=== PATIENT | male | born 1960 | race Hispanic/Latino ===

== ENCOUNTER 2024-05-13 06:10 | Observation (INO) | payer OTHER ==
[2024-05-12 09:22] LABS: BASOPHILS # (AUTO) 0.1 (0.0-0.1); BASOPHILS % 1.3 % (0.0-1.0); EOSINOPHILS # (AUTO) 0.1 (0.0-0.4); EOSINOPHILS % 1.7 % (0.0-6.0); HEMATOCRIT 52.7 % (38.2-49.6); HEMOGLOBIN 16.9 g/dL (14.0-18.0); LYMPHOCYTES # (AUTO) 1.3 (1.0-3.2); LYMPHOCYTES % 26.1 % (18.0-39.1); MEAN CORPUSCULAR HEMOGLOBIN 31.8 pg (28-32); MEAN CORPUSCULAR HGB CONC 32.1 g/dL (31-35); MEAN CORPUSCULAR VOLUME 99.2 fL (81-99); MONOCYTES # (AUTO) 0.8 (0.2-0.8); MONOCYTES % 16.1 % (4.4-11.3); NEUTROPHILS # (AUTO) 2.6 (2.1-6.9); NEUTROPHILS % 54.8 % (38.7-80.0); PLATELET COUNT 148 x10e3/uL (140-360); RED BLOOD COUNT 5.31 x10e6/uL (4.3-5.7); RED CELL DISTRIBUTION WIDTH 13.6 % (11.7-14.4); WHITE BLOOD COUNT 4.79 x10e3/uL (4.8-10.8)
[2024-05-12 09:35] LABS: INR 1.13; PROTHROMBIN TIME 15.1 seconds (11.9-14.5)
[2024-05-12 09:41] LABS: ANION GAP 11.1 mmol/L (8-16); CALCIUM 9.4 mg/dL (8.4-10.2); CREATININE, SERUM 1.03 mg/dL (0.72-1.25); POTASSIUM 4.1 mmol/L (3.5-5.1)
[~2024-05-13] VITALS: Ht 180.3 cm; Wt 117.5 kg
[~2024-05-13 06:10] MED LIST: AMLODIPINE-VAL1 EACH PO; CRESTOR40 MG PO; ELIQUIS5 MG PO; IPRATROPIUM BRO30 ML INH; METOPROLOL TART25 MG PO; MODAFINIL200 MG PO; MULTIVITAMIN1 EACH PO; PRESERVISION A1 EAC5 PO; RANEXA PO; [UNRECOGNIZED DRUG - CODE] PO
[2024-05-13] MEDS ORDERED: THROMBIN FOR SOLN 5,000 UNIT VIAL ONE (06:53)
[2024-05-13] MEDS ORDERED: Vancomycin IV 1 GM VIAL ONE (06:53)
[2024-05-13] MEDS: LACTATED RINGER'S 1,000 ML ONE (09:10)
[2024-05-13] MEDS: CEFAZOLIN SODIUM 2 GM ONE (09:10)
[2024-05-13] MEDS ORDERED: HYDROCODON-ACE1 EA12 PO (11:14)
[2024-05-13] MEDS ORDERED: PROMETHAZINE HCL (IM) 25 MG/ML VIAL IM PRN (11:15)
[2024-05-13] MEDS ORDERED: ACETAMINOPHEN 325 MG TAB PO PRN (11:15)
[2024-05-13] MEDS ORDERED: CEPACOL SORE THROAT LOZENGES PO PRN (11:15)
[2024-05-13] MEDS ORDERED: IPRATROPIUM BROMIDE 0.03% NASAL SPRAY 30ML SCH (11:15)
[2024-05-13] MEDS ORDERED: CARISOPRODOL 350 MG TAB PO PRN (11:15)
[2024-05-13] MEDS ORDERED: MAGNESIUM/ALUMINUM/SIMETHICONE 30 ML UDC PO PRN (11:15)
[2024-05-13] MEDS ORDERED: HYDROMORPHONE 2MG/ML IV PRN (11:15)
[2024-05-13] MEDS ORDERED: Morphine 10mg syringe 10 MG/ML INJ IM PRN (11:15)
[2024-05-13] MEDS ORDERED: AMLODIPINE BESYLATE 5 MG TAB PO SCH (11:15)
[2024-05-13] MEDS ORDERED: MODAFINIL 100 MG TAB PO SCH (11:15)
[2024-05-13] MEDS ORDERED: ONDANSETRON HCL INJ 2MG/ML 2ML 2 MG/ML VIAL IV PRN (11:15)
[2024-05-13] MEDS: FENTANYL CITRATE/PF 100MCG/2 ML INJ ONE (11:52)
[2024-05-13] MEDS ORDERED: SEVOFLURANE INHAL SOLN 250 ML PEN BTL ONE (12:35)
[2024-05-13] MEDS ORDERED: ONDANSETRON HCL INJ 2MG/ML 2ML 2 MG/ML VIAL ONE (12:35)
[2024-05-13] MEDS ORDERED: METOCLOPRAMIDE HCL 10 MG/2ML VIAL ONE (12:35)
[2024-05-13] MEDS ORDERED: PROPOFOL IV EMULSION 10 MG/ML 20 ML VIAL ONE (12:35)
[2024-05-13] MEDS ORDERED: DEXMEDETOMIDINE HCL 200 MCG/2 ML VIAL ONE (12:35)
[2024-05-13] MEDS ORDERED: KETAMINE HCL INJ 50 MG/ML 10 ML VIAL ONE ×2 (12:35→13:24)
[2024-05-13] MEDS ORDERED: DIPHENHYDRAMINE HCL INJ 50 MG/ML VIAL ONE (12:35)
[2024-05-13] MEDS ORDERED: ROCURONIUM BROMIDE 10 MG/ML 5ML VIAL IV ONE (12:35)
[2024-05-13] MEDS ORDERED: DEXAMETHASONE SOD PHOS 10 MG/1 ML VIAL ONE (12:35)
[2024-05-13] MEDS ORDERED: ACETAMINOPHEN 1000 MG/100 ML IV ONE (12:35)
[2024-05-13] MEDS ORDERED: SUGAMMADEX SODIUM 200 MG/2 ML VIAL IV ONE (12:35)
[2024-05-13] MEDS ORDERED: LIDOCAINE HCL 2% LOCAL INJ 5 ML SDV VIAL INJ ONE (12:35)
[2024-05-13] MEDS ORDERED: FAMOTIDINE 20 MG/2 ML VIAL IV ONE (12:35)
[2024-05-13] MEDS ORDERED: MIDAZOLAM HCL 2 MG/2 ML VIAL ONE (13:24)
[2024-05-13] MEDS ORDERED: FENTANYL CITRATE/PF 100MCG/2 ML INJ ONE (13:24)
[2024-05-13 13:40] VITALS: BP 133/91; PULSE 69; RESP 18; TEMP 97.5; O2SAT 99
[2024-05-13] MEDS: LACTATED RINGER'S 1,000 ML IV SCH (13:44)
[2024-05-13] MEDS ORDERED: VALSARTAN 160 MG TAB PO SCH (13:45)
[2024-05-13] MEDS: OXYCODONE/ACETAMINOPHEN 5-325 1 EACH TABLET PO PRN (15:33)
[2024-05-13] MEDS: METOPROLOL TARTRATE 25 MG TAB PO SCH (15:34)
[2024-05-13] MEDS: RANOLAZINE 500 MG TABSR PO SCH (15:34)
[2024-05-13 16:09] VITALS: BP 125/86; PULSE 69; RESP 18; TEMP 97.7; O2SAT 96
[2024-05-13 16:26] VITALS: BP 125/86; PULSE 69; RESP 18; TEMP 97.7
[2024-05-13 16:30] VITALS: BP 125/86; PULSE 69; RESP 18; TEMP 97.7; O2SAT 96
[2024-05-13 20:00] VITALS: BP 110/73; PULSE 92; RESP 18; TEMP 98.7; O2SAT 96
[2024-05-13 21:00] VITALS: BP 110/73; PULSE 92; RESP 18; TEMP 98.7; O2SAT 96
[2024-05-13] MEDS: CRESTOR 10MG PO SCH (21:52)
[2024-05-13] MEDS: ZOLPIDEM TARTRATE 5 MG TAB PO PRN (22:24)
[2024-05-14] VITALS: BP 116/72; PULSE 64; RESP 18; TEMP 98.3; O2SAT 96
[2024-05-14 04:00] VITALS: BP 110/75; PULSE 62; RESP 18; TEMP 97.6; O2SAT 96
[2024-05-14 08:20] VITALS: BP 154/73; PULSE 63; RESP 18; TEMP 98; O2SAT 100
[2024-05-14 08:32] VITALS: BP 154/73; PULSE 63; RESP 18; TEMP 98; O2SAT 100
[2024-05-14] MEDS ORDERED: AMLODIPINE BESYLATE 5 MG TAB PO SCH (09:00)
[2024-05-14] MEDS ORDERED: VALSARTAN 160 MG TAB PO SCH (09:00)
[2024-05-14] MEDS ORDERED: ONDANSETRON HCL 4 MG ORAL DISINTEGRATING TAB PO PRN (10:15)
== END 2024-05-14 10:00 | disposition home or self-care (01) ==
LOC: OR 06:10 → PACU V 11:11 → MED/SURG3 12:50
PROVIDERS: ADMIT Neurological Surgery; ATTEND Neurological Surgery
DX: M48.062 Spinal stenosis, lumbar region with neurogenic claudication (principal); G47.33 Obstructive sleep apnea (adult) (pediatric); I25.10 Atherosclerotic heart disease of native coronary artery without angina pectoris; I48.91 Unspecified atrial fibrillation; I10 Essential (primary) hypertension; E78.5 Hyperlipidemia, unspecified; Z71.82 Exercise counseling; Z71.3 Dietary counseling and surveillance; E66.01 Morbid (severe) obesity due to excess calories; G47.419 Narcolepsy without cataplexy; Z91.013 Allergy to seafood; Z91.048 Other nonmedicinal substance allergy status; Z79.02 Long term (current) use of antithrombotics/antiplatelets; Z79.899 Other long term (current) drug therapy; Z68.34 Body mass index [BMI] 34.0-34.9, adult
CPT/HCPCS: 36415; 63047; 63048; 71046; 72020; 80048; 85025; 85610; 85730; 86850; 86900; 88304; 88311; G0378 ×2; J0131; J0690 ×2; J1100; J1200; J2001; J2250; J2405; J2704; J2765; J3010; J3370; J7121; J2270